=== PATIENT | female | born 1950 | race Caucasian/White ===

== ENCOUNTER → 2020-07-04 | Outpatient (CLI) | payer BC, OTHER ==
[~2020-07-04] MED LIST: AMLO1TAB24 PO; OXYB10TA23 PO; PARO20TA3 PO
== END ==
LOC: M LABSMTC 10:15
PROVIDERS: ATTEND Anesthesiology
DX: Z01.812 Encounter for preprocedural laboratory examination (principal); Z20.822 Contact with and (suspected) exposure to COVID-19

== ENCOUNTER 2020-07-09 06:53 | Day surgery (SDC) | payer MEDICARE, BC, OTHER ==
[~2020-07-09] VITALS: Ht 157.5 cm; Wt 84.0 kg
[~2020-07-09 06:53] MED LIST changes: +DUOVISC (0.50ML VISCOAT/0.55ML PROVISC) OPHTH KIT As Ordered ONE; +POVIDONE-IODINE 5% OPHTH PREP SOL 30ML As Ordered ONE; +UNRESOLVED CLARIFICATION ENTRY XX SCH
[2020-07-09] MEDS ORDERED: PROPARACAINE 0.5% OPHTH SOL 15ML OS ONE (07:00)
[2020-07-09] MEDS ORDERED: PHENYLEPHRINE 2.5% OPHTH SOL 2ML OS ONE (07:00)
[2020-07-09] MEDS ORDERED: OFLOXACIN 0.3 % (OCUFLOX) OPTH SOL 5ML OS ONE (07:00)
[2020-07-09] MEDS ORDERED: TROPICAMIDE 1% OPHTH SOLN 2ML OS ONE (07:00)
[2020-07-09] MEDS ORDERED: BSS IRR 500ML/OMIDRIA 4ML IRR BAG (OR ONLY) As Ordered ONE (08:52)
[2020-07-09] MEDS ORDERED: fentaNYL 100 MCG/2 ML INJECTION (J3010) As Ordered ONE (08:58)
[2020-07-09] MEDS ORDERED: MIDAZOLAM INJ 2MG/2ML VIAL (J2250 PER 1MG) As Ordered ONE (08:58)
[2020-07-09] MEDS ORDERED: propofoL 200 MG/20 ML VIAL As Ordered ONE (08:58)
[2020-07-09 09:40] VITALS: BP 158/92
--- NOTE | 2020-07-10 08:52 | RO ---
OPERATIVE NOTE DATE OF OPERATION: 07/09/2020 PREOPERATIVE DIAGNOSIS: 1. Visually significant nuclear sclerotic cataract, left eye. POSTOPERATIVE DIAGNOSIS: 1. Visually significant nuclear sclerotic cataract, left eye. PROCEDURE: 1. Cataract extraction with use of phacoemulsification, and placement of intraocular lens, AU00T0, 24.0 D, left eye. SURGEON: Clemente Kirkland DO ANESTHESIA: Local (Omidria with MAC) COMPLICATIONS: None POSTOPERATIVE CONDITION: Stable INDICATIONS FOR SURGERY: 1. Blurred vision affecting patient's activities of daily living. DESCRIPTION OF PROCEDURE: The patient was seen in the preoperative area and properly identified. The correct operative eye was identified and marked. The patient received topical anesthetic, antibiotics, and topical dilating drops. The patient was then transferred to the operating room. The correct side was re-identified and a time-out was performed. The eye was prepped and draped in a sterile fashion. The eyelids were isolated with Tegaderm tape and the lids were held open with an adjustable speculum. A 1.0mm paracentesis incision was made. Omidria was then injected into the anterior chamber. Viscoelastic was then injected into the anterior chamber through the paracentesis. Using a 2.4mm sharp-tipped keratome, the anterior chamber was entered via a temporal clear cornea incision. A continuous curvilinear capsulorrhexis was created with Utrata forceps. Hydrodissection was performed with BSS on a blunt cannula until the nucleus was able to rotate freely. The crystalline lens was phacoemulsified and aspirated. Irrigation/aspiration was used to remove the cortical material Cohesive viscoelastic was placed into the capsular bag to deepen it. The implant was placed into the capsular bag and allowed to unfold. Placement was confirmed by visualizing the anterior capsulorrhexis. Irrigation/aspiration was used to remove the viscoelastic. The clear corneal incision was hydrated with BSS on a blunt cannula. The lens was well positioned. Intracameral antibiotic was injected into the anterior chamber. The incisions were then tested for leaks and found to be negative. The eye was then palpated for appropriate pressure and adjusted accordingly with BSS. The eyelid speculum was then carefully removed. A shield was placed over the eye. The patient tolerated the procedure well and was discharge to the recovery unit in a stable condition. LUIS
== END 2020-07-09 10:02 | disposition home or self-care (01) ==
LOC: M SDC 06:53
PROVIDERS: ATTEND Ophthalmology
DX: H25.12 Age-related nuclear cataract, left eye (principal); I10 Essential (primary) hypertension; Z85.3 Personal history of malignant neoplasm of breast; Z92.21 Personal history of antineoplastic chemotherapy; Z92.3 Personal history of irradiation; Z88.0 Allergy status to penicillin; Z88.2 Allergy status to sulfonamides
CPT/HCPCS: 66984; J1097; J2250; J3010; V2632

== ENCOUNTER → 2020-07-11 | Outpatient (CLI) | payer BC, OTHER ==
[~2020-07-11] MED LIST changes: -DUOVISC (0.50ML VISCOAT/0.55ML PROVISC) OPHTH KIT As Ordered ONE; -POVIDONE-IODINE 5% OPHTH PREP SOL 30ML As Ordered ONE; -UNRESOLVED CLARIFICATION ENTRY XX SCH
== END ==
LOC: M LABSMTC 08:55
PROVIDERS: ATTEND Anesthesiology
DX: Z01.812 Encounter for preprocedural laboratory examination (principal); Z20.822 Contact with and (suspected) exposure to COVID-19

== ENCOUNTER 2020-07-16 09:18 | Day surgery (SDC) | payer MEDICARE, BC, OTHER ==
[~2020-07-16] VITALS: Ht 154.9 cm; Wt 84.4 kg
[~2020-07-16 09:18] MED LIST changes: +DUOVISC (0.50ML VISCOAT/0.55ML PROVISC) OPHTH KIT As Ordered ONE; +OFLOXACIN 0.3 % (OCUFLOX) OPTH SOL 5ML OD ONE; +PHENYLEPHRINE 2.5% OPHTH SOL 2ML OD ONE; +POVIDONE-IODINE 5% OPHTH PREP SOL 30ML As Ordered ONE; +PROPARACAINE 0.5% OPHTH SOL 15ML OD ONE; +TROPICAMIDE 1% OPHTH SOLN 2ML OD ONE; +UNRESOLVED CLARIFICATION ENTRY XX SCH
[2020-07-16] MEDS ORDERED: fentaNYL 100 MCG/2 ML INJECTION (J3010) As Ordered ONE (10:45)
[2020-07-16] MEDS ORDERED: MIDAZOLAM INJ 2MG/2ML VIAL (J2250 PER 1MG) As Ordered ONE (10:45)
[2020-07-16] MEDS ORDERED: BSS IRR 500ML/OMIDRIA 4ML IRR BAG (OR ONLY) As Ordered ONE (11:06)
[2020-07-16 12:35] VITALS: BP 160/72
--- NOTE | 2020-07-17 12:22 | RO ---
OPERATIVE NOTE DATE OF OPERATION: 07/16/2020 PREOPERATIVE DIAGNOSIS: 1. Visually significant nuclear sclerotic cataract, right eye. POSTOPERATIVE DIAGNOSIS: 1. Visually significant nuclear sclerotic cataract, right eye. PROCEDURE: 1. Cataract extraction with use of phacoemulsification, and placement of intraocular lens, AU00T0, 23.0 D, right eye. SURGEON: Clemente Kirkland DO ANESTHESIA: Local (Omidria with MAC) COMPLICATIONS: None POSTOPERATIVE CONDITION: Stable INDICATIONS FOR SURGERY: 1. Blurred vision affecting patient's activities of daily living. DESCRIPTION OF PROCEDURE: The patient was seen in the preoperative area and properly identified. The correct operative eye was identified and marked. The patient received topical anesthetic, antibiotics, and topical dilating drops. The patient was then transferred to the operating room. The correct side was re-identified and a time-out was performed. The eye was prepped and draped in a sterile fashion. The eyelids were isolated with Tegaderm tape and the lids were held open with an adjustable speculum. A 1.0mm paracentesis incision was made. Omidria was then injected into the anterior chamber. Viscoelastic was then injected into the anterior chamber through the paracentesis. Using a 2.4mm sharp-tipped keratome, the anterior chamber was entered via a temporal clear cornea incision. A continuous curvilinear capsulorrhexis was created with Utrata forceps. Hydrodissection was performed with BSS on a blunt cannula until the nucleus was able to rotate freely. The crystalline lens was phacoemulsified and aspirated. Irrigation/aspiration was used to remove the cortical material Cohesive viscoelastic was placed into the capsular bag to deepen it. The implant was placed into the capsular bag and allowed to unfold. Placement was confirmed by visualizing the anterior capsulorrhexis. Irrigation/aspiration was used to remove the viscoelastic. The clear corneal incision was hydrated with BSS on a blunt cannula. The lens was well positioned. Intracameral antibiotic was injected into the anterior chamber. The incisions were then tested for leaks and found to be negative. The eye was then palpated for appropriate pressure and adjusted accordingly with BSS. The eyelid speculum was then carefully removed. A shield was placed over the eye. The patient tolerated the procedure well and was discharge to the recovery unit in a stable condition.
== END 2020-07-16 13:00 | disposition home or self-care (01) ==
LOC: M SDC 09:18
PROVIDERS: ATTEND Ophthalmology
DX: H25.11 Age-related nuclear cataract, right eye (principal); I10 Essential (primary) hypertension; Z85.3 Personal history of malignant neoplasm of breast; Z92.21 Personal history of antineoplastic chemotherapy; Z92.3 Personal history of irradiation; Z88.0 Allergy status to penicillin; Z88.2 Allergy status to sulfonamides; Z79.899 Other long term (current) drug therapy
CPT/HCPCS: 66984; J1097; J2250; J3010; V2632

== ENCOUNTER → 2020-10-30 | Outpatient (CLI) | payer MEDICARE, BC, OTHER ==
[~2020-10-30] MED LIST changes: -DUOVISC (0.50ML VISCOAT/0.55ML PROVISC) OPHTH KIT As Ordered ONE; -OFLOXACIN 0.3 % (OCUFLOX) OPTH SOL 5ML OD ONE; -PHENYLEPHRINE 2.5% OPHTH SOL 2ML OD ONE; -POVIDONE-IODINE 5% OPHTH PREP SOL 30ML As Ordered ONE; -PROPARACAINE 0.5% OPHTH SOL 15ML OD ONE; -TROPICAMIDE 1% OPHTH SOLN 2ML OD ONE; -UNRESOLVED CLARIFICATION ENTRY XX SCH
--- NOTE | 2020-10-30 10:50 | RADONC.CN ---
Radiation Oncology Hx/Consult Radiation Oncology Consult Date of Service: Oct 30, 2020 Pt Identifier Arleth France is a 70 year old female with a history of left breast cancer in 1997 treated with lumpectomy adjuvant RT and chemotherapy including an autologous SCT. She now has a right breast cancer pT1cN0(sn)M0 ER/WA+ HER2- Grade 3 s/p lumpectomy and SLNB with Dr. Huynh on 09/23/20. She is seen for consideration of adjuvant RT. Diagnosis/Treatment History Oncologic History Left breast cancer 1997 Lumpectomy ALND adjuvant chemotherapy, adjuvant RT, and autologous SCT Right breast cancer 202008/10/20 Mammogram with right lateral breast lesion 08/20/20 Biopsy with IDC grade 3 ER/WA+ HER2- 09/23/20 Lumpectomy and SLNB ([facility]) pT1cN0(sn) margins negative Breast history: 1st @ 26 Menses @ 15 Menopause @ 56 OCP use 7 years No HRT No IVF Interval History Arleth is here with supportive Pat. She feels well only breast concern is ongoing right nipple tenderness. No swelling in the BL UE. No concerns s/p tr eatment of the left breast cancer in 1997. 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 She has some chronic fatigue. She has good appetite and stable weight. Past Medical History: HTN Past Surgical History: Cataracts Hysterectomy Tubal ligation Family History: No family history of breast cancer Social History: Never smoker Drinks 1-2 drinks per week Allergies / Meds Allergies: Coded Allergies: Penicillins (Verified Allergy, Unknown, 07/03/20) Sulfa (Sulfonamide Antibiotics) (Verified Allergy, Unknown, 07/03/20) Home Meds Reported Medications Paroxetine HCl (Paroxetine HCl) 20 Mg Tablet, 20 MG PO DAILY 07/03/20 Oxybutynin Chloride (Oxybutynin Chloride ER) 10 Mg Tab.er.24, 10 MG PO DAILY 07/03/20 Amlodipine Besylate (Amlodipine Besylate) 5 Mg Tablet, 5 MG PO DAILY 07/03/20 Review of Systems General: Reports: Normal Appetite Constitutional: Denies: Chills, Fever, Night Sweats Eyes: Denies: Pain, Vision change HEENT: Denies: Head Aches, Dysphagia, Sore Throat Skin: Denies: Rash, Lesions, Bruising Pulmonary: Denies: Dyspnea, Cough Cardiovascular: Denies: Chest Pain, Palpitations, Edema Gastrointestinal: Denies: Nausea, Vomiting, Abdominal Pain, Diarrhea Genitourinary: Denies: Dysuria, Frequency, Incontinence Hematologic: Denies: Bruising, Petecchia, Enlarged Lymph Nodes Musculoskeletal: Denies: Neck pain, Back pain Neurological: Denies: Weakness, Numbness, Incoordination Psych: Reports: Mood Normal; Denies: Memory Issues, Thoughts of Self Harm Vital Signs Ht 62" Wt 191 lbs BMI 35 T 97 P 83 RR 18 BP 137/78 O2 100% Pain 0 Fatigue 0 General Exam: Positive: Alert, Cooperative, No Acute Distress Eye Exam: Positive: PERRLA, EOMI ENT EXAM: Positive: Mucous membr. moist/pink, Pharynx Normal Neck Exam: Negative: Supple, JVD, Thyromegaly, +2 carotid pulse wo bruit, Lymphadenopathy, Other Chest Exam: Negative: Clear to auscultation, Normal air movement, Rales, Rhonchi, Wheezing, Diminished, Other Heart Exam: Positive: Rate Normal, Regular Rhythm Breast Exam: Negative: Symmetric Bilaterally (Left breast smaller than right, higher laying, no skin sequelae of RT other than 5 RT tattoos (SSD breast). Right breast with healed axillary and right lower outer quadrant incisions. There are no palpable lesions or masses BL in the breasts or axillae. ), Nipple Retraction, Nipple Discharge Abdomen Exam: Positive: Soft Extremity Exam: Negative: Edema Skin Exam: Positive: Nl turgor and temperature Neuro Exam: Positive: Normal Gait, Normal Speech, Cranial Nerves 3-12 NL Psych Exam: Positive: Mental status NL Diagnostic and Laboratory Diagnostic Review Radiologic images, relevant labs and pathology reports were personally reviewed and discussed with Ms. France. Assessment and Plan Impression Ms. France is a 70 year old female with a history of left breast cancer in 1997 treated with lumpectomy adjuvant RT and chemotherapy including an autologous SCT. She now has a right breast cancer pT1cN0(sn)M0 ER/WA+ HER2- Grade 3 s/p lumpectomy and SLNB with Dr. Huynh on 09/23/20. She is seen for consideration of adjuvant RT. Stage Right lower outer breast cancer pT1cN0(sn)M0 ER/WA+ HER2- Grade 3 Stage IA Performance Status ECOG 0 Plan We had an extensive discussion with Ms. France regarding the diagnosis at hand and available therapeutic options. She has a history of left breast cancer in remission, she had an SCT for this. Thankfully, her current cancer is the usual type, early stage, screening dete cted, and treated with BCS. She has an appointment with Dr. Calderon regarding AI upcoming. I discussed that based on her age and pathology that she would be well-served with APBI as an alternative to WBI. I recommended consideration of 40 Gy in 15 fractions per IMPORT LOW, versus the newer option of 26 Gy in 5 fractions per FAST FORWARD. The caveat of shorter follow up with the FAST FORWARD regimen was thoroughly discussed. She opted for the shorter regimen. I will treat her supine with VMAT and daily CBCT for localization. We discussed the logistics of receiving radiation therapy in detail including the need for a 1-time planning session. We reviewed the side effects of treatment including fatigue, skin reaction, and late fibrosis. After discussing the risks, benefits and alternatives to radiation therapy, Ms. France was amenable to pursuing radiotherapy. All questions were answered to the patient's satisfaction. We instructed the patient that if there were any questions,concerns or changes in clinical status in the interim to contact us. Recommendations APBI 26 Gy in 5 fractions with VMAT and daily CBCT Simulation in the next week Billing Statement Total time of [45] minutes was spent preparing for the visit [2], obtaining HPI [7], examining the patient [5], reviewing diagnostic tests [4], discussing management options [15], coordinating care [2], and writing this note [10]. GORDO CLINE MD Oct 30, 2020 10:50
== END ==
LOC: M ONCR 08:54
PROVIDERS: ATTEND General Practice
DX: C50.911 Malignant neoplasm of unspecified site of right female breast (principal); I10 Essential (primary) hypertension; R53.82 Chronic fatigue, unspecified; Z79.899 Other long term (current) drug therapy; Z85.3 Personal history of malignant neoplasm of breast; Z88.0 Allergy status to penicillin; Z88.2 Allergy status to sulfonamides; Z90.710 Acquired absence of both cervix and uterus; Z92.21 Personal history of antineoplastic chemotherapy; Z92.3 Personal history of irradiation; Z96.1 Presence of intraocular lens; Z98.51 Tubal ligation status

== ENCOUNTER 2020-11-27 14:30 | Outpatient (RCR) | payer MEDICARE, BC, OTHER | END 2020-12-05 | LOC: M ONCR 14:30 | PROVIDERS: ATTEND General Practice | DX: C50.511 Malignant neoplasm of lower-outer quadrant of right female breast (principal) ==

== ENCOUNTER → 2021-06-02 | Outpatient (CLI) | payer MEDICARE, BC, OTHER ==
[~2021-06-02] MED LIST changes: +AZIT500T5 PO
== END ==
LOC: M ONCR 13:40
PROVIDERS: ATTEND General Practice
DX: C50.511 Malignant neoplasm of lower-outer quadrant of right female breast (principal); Z92.3 Personal history of irradiation; Z92.21 Personal history of antineoplastic chemotherapy; Z88.0 Allergy status to penicillin; Z88.2 Allergy status to sulfonamides